=== PATIENT | male | born 1960 | race Caucasian/White ===

== ENCOUNTER 2017-01-07 08:20 | Emergency (ER) | payer BC ==
[2017-01-07] MEDS ORDERED: DIPHTH,PERTUSS(ACELL),TET TOX 0.5 ML DISP.SYRIN. VAX IM ONE (08:45)
--- NOTE | 2017-01-07 08:48 | PHYS DOC ---
Adult General Chief Complaint Chief Complaint: LACERATION/AVULSION HPI HPI Patient is a 56-year-old right-handed man who presents ambulatory to the ED with a laceration to the fingertip of his left middle finger. It occurred at home while he was using a knife to slice a roll of sausage. He has been holding pressure with a towel. Last tetanus was greater than 5 years ago. He does not take blood thinners. He is in good general health. He works at an [employer] plant. Review of Systems Review of Systems Constitutional: Denies fever Integument: Denies other injury Current Medications Current Medications Current Medications Medications (Trade) Dose Ordered Sig/Danish Start Time Stop Time Status Last Admin Dose Admin Diphtheria/ Tetanus/Acell Pertussis (Boostrix) 0.5 ml ONCE ONCE 01/07/17 08:45 01/07/17 08:46 UNV Allergies Allergies Allergies Coded Allergies Type Severity Reaction Last Updated Verified No Known Drug Allergies 01/07/17 No Physical Exam Physical Exam Constitutional: Well developed, well nourished, no acute distress, non-toxic appearance. Alert, ambulatory, mentating normally. HENT: Normocephalic, atraumatic, bilateral external ears normal, nose normal. [ ] Eyes: conjunctiva normal, no discharge. [] Neck: Normal range of motion, no stridor. [] Skin: Warm, dry, no erythema, no rash. [] Extremities: No tenderness, no cyanosis, no clubbing, ROM intact, no edema. Left middle finger: There is an almost-complete avulsion of the fingertip measuring approximately 1 cm in diameter. The skin is pale but is intact. The site is bleeding. Neurologic: Alert and oriented X 3, normal motor function, no focal deficits noted. [] EKG EKG [] Radiology/Procedures Radiology/Procedures Procedure: Repair of left middle finger skin avulsion by me. 1 cm total size. Pressure was held until hemostatic. Steri-Strips were used to adhere the avulsion in place. Dermabond was used to adhere the Steri-Strips. Good approximation was achieved. The avulsed skin is pale and likely not viable but I left it in place to cover the open area; there is a slight chance it might revascularize.] Course & Med Decision Making Course & Med Decision Making Pertinent Labs and Imaging studies reviewed. (See chart for details) Patient presents with a clean knife injury resulting in a near-complete avulsion approximately 1 cm diameter and relatively thick on the left middle finger tip. The fingernail is not involved. After holding pressure for several minutes, the area was hemostatic enough to be repaired. See procedure note. A tube gauze dressing was applied by ED RN. See instructions for plan. [] Dragon Disclaimer Dragon Disclaimer This chart was dictated in whole or in part using Voice Recognition software in a busy, high-work load, and often noisy Emergency Department environment. It may contain unintended and wholly unrecognized errors or omissions. Departure Departure: Impression: Primary Impression: Fingertip amputation Additional Impression: Avulsion of fingertip Disposition: HOME, SELF-CARE Condition: IMPROVED Patient Instructions: Fingertip Laceration Additional Instructions: As we discussed, the slice of skin is very pale and probably won't live, but it will serve as a built-in bandage while we hope the skin underneath will heal. If it doesn't start healing in a week or 2, you may end up needing a skin graft. Leave the bandage on and keep it dry, elevate as much as possible, for 3 days. Then, carefully removed the bandage, rebound and it with a clean tubular-type bandage. As needed, you may reinforce the glue with skin glue or superglue. I'd like the bandage strips to stay in place for 2 weeks if possible. Make an appointment for follow-up in about a week, either with wound clinic at [facility] or specialist referred by your doctor, whichever you prefer. [phone] Ibuprofen if needed for pain. Problem Qualifiers DAVIS WALL MD Jan 07, 2017 08:48
[2017-01-07 09:00] VITALS: BP 138/88
== END 2017-01-07 09:01 | disposition home or self-care (01) ==
LOC: ER 08:20
DX: S68.123A Partial traumatic metacarpophalangeal amputation of left middle finger, initial encounter (principal); W26.0XXA Contact with knife, initial encounter; Y93.89 Activity, other specified; Y99.8 Other external cause status; Y92.89 Other specified places as the place of occurrence of the external cause
CPT/HCPCS: 12001; 90471; 90715; 99283-25